=== PATIENT | male | born 1970 | race Caucasian/White ===

== ENCOUNTER 2024-04-15 12:39 | Inpatient (IN) ==
[2024-04-15] MEDS ORDERED: IOPAMIDOL 100 ML BOTTLE IV ONE (12:40)
[2024-04-15 12:56] LABS: POC INR 1.1 (0.8-1.2)
[2024-04-15 13:08] LABS: Basophils # (Auto) 0.02 K/mcL (0.00-0.30); Basophils % (Auto) 0.2 % (0.0-2.0); Eosinophils # (Auto) 0.13 K/mcL (0.00-0.70); Eosinophils % (Auto) 1.2 % (0.0-7.0); Hemoglobin 16.1 g/dL (13.7-17.5); Lymphocytes # (Auto) 3.41 K/mcL (1.50-4.80); Lymphocytes % (Auto) 31.8 % (15.5-49.0); Mean Corpuscular HGB Conc 33.5 g/dL (31.0-36.0); Mean Platelet Volume 9.8 fL (8.8-12.5); Monocytes % (Auto) 9.3 % (1.0-12.0); Neutrophils % (Auto) 57.3 % (38.0-78.0); Platelet Count 300 K/mcL (140-440); RBC 5.05 M/mcL (4.63-6.08); Red Cell Distribution Width 12.7 % (11.5-14.5); WBC 10.7 K/mcL (4.5-11.0)
[2024-04-15] MEDS: ASPIRIN 81 MG TAB.CHEW CHEWED ONE (13:39)
[2024-04-15] MEDS: ASPIRIN 325 MG ENTERIC COATED TABLET PO ONE (13:39)
[2024-04-15] MEDS: ASPIRIN 81 MG TAB.CHEW ONE (13:39)
[2024-04-15] MEDS: ATORVASTATIN 40 MG TABLET PO ONE (13:39)
[2024-04-15 13:43] LABS: ALT/SGPT 28 U/L (<40); AST/SGOT 35 U/L (<40); Albumin 4.1 gm/dL (3.2-5.2); Albumin/Globulin Ratio 1.1 (1.0-2.3); Alkaline Phosphatase 98 U/L (39-117); Bilirubin,Total 0.4 mg/dL (0.1-1.0); Blood Urea Nitrogen 15 mg/dL (6-20); Calcium 9.6 mg/dL (8.6-10.4); Carbon Dioxide 23 mmol/L (22-30); Chloride 103 mmol/L (96-108); Globulin 3.8 gm/dL (2.2-3.7); Glomerular Filtration Rate 101; Glucose 85 mg/dL (70-105)
[2024-04-15] MEDS: MECLIZINE 25 MG TABLET PO ONE (15:00)
[2024-04-15] MEDS ORDERED: ACETAMINOPHEN 325 MG TABLET PO PRN (16:06)
[2024-04-15] MEDS ORDERED: hydrALAZINE 20 MG/ML VIAL IV PRN (16:06)
[2024-04-15] MEDS ORDERED: traZODone HCL 50 MG TABLET PO PRN (16:06)
[2024-04-15] MEDS ORDERED: IPRATROPIUM/ALBUTEROL 3 ML AMPUL.NEB NEB PRN (16:06)
[2024-04-15] MEDS: ONDANSETRON 4 MG/2 ML VIAL IV PRN (16:25)
[2024-04-15 16:49] LABS: Appearance,Urine Clear (Clear); Bilirubin,Urine Negative (Negative); Color,Urine Yellow; Culture Indicated,Urine No; Glucose,Urine (UA) Negative (Negative); Ketones,Urine Negative (Negative); Leukocyte Esterase,Urine Negative /uL (Negative); Nitrate,Urine Negative (Negative); Protein,Urine Negative (Negative); Specific Gravity,Urine 1.015 (1.000-1.035); Urine Blood Negative ery/mcL (Negative); Urobilinogen,Urine Normal
[2024-04-15] MEDS: METOCLOPRAMIDE 10 MG/2 ML VIAL IV PRN (18:00)
[2024-04-15] MEDS: PANTOPRAZOLE 40 MG TABLET PO ONE (18:00)
[2024-04-15] MEDS: MECLIZINE 25 MG TABLET PO PRN (20:23)
[2024-04-15] MEDS: DOCUSATE SODIUM 100 MG CAPSULE PO SCH (20:23)
[2024-04-15] MEDS: SENNOSIDES 1 TABLET PO SCH (20:23)
[2024-04-15] MEDS: 0.9 % SODIUM CHLORIDE 10 ML SYRINGE IV SCH (20:24)
[2024-04-16 06:34] LABS: Basophils # (Auto) 0.02 K/mcL (0.00-0.30); Basophils % (Auto) 0.2 % (0.0-2.0); Eosinophils # (Auto) 0.17 K/mcL (0.00-0.70); Eosinophils % (Auto) 2.1 % (0.0-7.0); Hematocrit 47.9 % (40.1-51.0); Hemoglobin 15.9 g/dL (13.7-17.5); Lymphocytes # (Auto) 2.24 K/mcL (1.50-4.80); Lymphocytes % (Auto) 27.6 % (15.5-49.0); Mean Cell Volume 95.6 fL (80.0-100.0); Mean Corpuscular HGB Conc 33.2 g/dL (31.0-36.0); Mean Platelet Volume 9.6 fL (8.8-12.5); Monocytes # (Auto) 0.65 K/mcL (0.10-0.90); Platelet Count 260 K/mcL (140-440); RBC 5.01 M/mcL (4.63-6.08); Red Cell Distribution Width 12.8 % (11.5-14.5); WBC 8.1 K/mcL (4.5-11.0)
[2024-04-16 07:04] LABS: ALT/SGPT 25 U/L (<40); AST/SGOT 32 U/L (<40); Albumin 3.9 gm/dL (3.2-5.2); Albumin/Globulin Ratio 1.1 (1.0-2.3); Alkaline Phosphatase 91 U/L (39-117); Bilirubin,Total 0.4 mg/dL (0.1-1.0); Blood Urea Nitrogen 14 mg/dL (6-20); Calcium 9.2 mg/dL (8.6-10.4); Carbon Dioxide 23 mmol/L (22-30); Chloride 104 mmol/L (96-108); Globulin 3.4 gm/dL (2.2-3.7); Glomerular Filtration Rate 101; Glucose 100 mg/dL (70-105)
[2024-04-16] MEDS: PANTOPRAZOLE 40 MG TABLET PO SCH (07:43)
[2024-04-16 08:05] LABS: HDL Cholesterol 33 mg/dL (>40); LDL Cholesterol,Calculated 134 mg/dL (<100); Non-HDL Cholesterol 169 mg/dL (<130); Triglycerides 177 mg/dL (<150)
[2024-04-16 08:22] LABS: Estimated Average Glucose(eAG) 126 mg/dL
[2024-04-16] MEDS: ASPIRIN 81 MG TAB.CHEW CHEWED SCH (09:41)
[2024-04-16] MEDS: ENOXAPARIN 40 MG/0.4 ML SYRINGE SQ SCH (09:42)
[2024-04-16] MEDS: ATORVASTATIN 40 MG TABLET PO SCH (20:05)
[2024-04-17] MEDS: PNEUMOCOCCAL 23-VAL P-SAC VAC 0.5 ML SYRINGE IM ONE (12:32)
== END 2024-04-17 14:40 | disposition home or self-care (01) | DRG 66 ==
LOC: ED 12:39 → MEDSUR 15:59
PROVIDERS: ADMIT Internal Medicine; ATTEND Internal Medicine